=== PATIENT | male | born 1960 | race African-American/Black ===

== ENCOUNTER → 2017-03-05 | Outpatient (CLI) | payer MEDICAID ==
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
== END ==
LOC: RAD 13:39
PROVIDERS: ATTEND Nurse Practitioner Family
DX: S23.0 Traumatic rupture of thoracic intervertebral disc (principal)

== ENCOUNTER → 2017-03-16 | Outpatient (CLI) | payer MEDICAID ==
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
== END ==
LOC: MRI 11:07
PROVIDERS: ATTEND Nurse Practitioner Family
DX: S23.1 Subluxation and dislocation of thoracic vertebra (principal); M54.12 Radiculopathy, cervical region

== ENCOUNTER 2017-03-27 20:57 | Emergency (ER) | payer MEDICAID, OTHER ==
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
[2017-03-27] MEDS ORDERED: ORPHENADRINE CITRATE 30 MG/ML AMP IM ONE (22:40)
[2017-03-27] MEDS ORDERED: HYDROCOD/APAP 7.5/325 (ER DISP) #3 TAB PO ONE (22:41)
[2017-03-27] MEDS ORDERED: KETOROLAC TROMETHAMINE INJ 60 MG/2 ML VIAL IM ONE (22:47)
[2017-03-27 23:09] VITALS: O2SAT 99
[2017-03-27 23:11] VITALS: BP 174/113; TEMP 97.5
== END 2017-03-27 23:11 | disposition home or self-care (01) ==
LOC: ER 20:57
DX: G89.29 Other chronic pain (principal); M54.6 Pain in thoracic spine; M62.830 Muscle spasm of back; I10 Essential (primary) hypertension

== ENCOUNTER 2017-06-03 21:27 | Emergency (ER) | payer MEDICAID, OTHER ==
[2017-06-03 22:28] VITALS: TEMP 97.3; O2SAT 99
--- NOTE | 2017-06-03 23:01 | ED.PDOC ---
History of Present Illness - General Chief Complaint: Skin/Abrasion/Tear Stated Complaint: rash, itching all over Time Seen by Provider: 06/03/17 22:56 Source: patient Exam Limitations: no limitations - History of Present Illness Initial Comments: Jay Herrera 56 y/o male stated that for the last 3 weeks he has itchy skin rash and house that family staying was checked by pest control and found that there was bug in the house then it was sprayed last week but family continue to itch.And also he was using insect spray bought from [employer] but stated con tinue to itch on his torso and extremities. Timing/Duration: other - 3 weeks Severity: moderate Location: torso, extremities Improving Factors: nothing Worsening Factors: nothing Associated Symptoms: jaundice Allergies/Adverse Reactions: Allergies NO KNOWN ALLERGY Allergy (Verified 06/03/17 22:28) Home Medications: Ambulatory Orders Baclofen 10 mg PO BID #20 tab 03/27/17 Htn Med 03/27/17 Muscle Relaxer 03/27/17 Tylenol 4 03/27/17 predniSONE 20 mg PO BID #14 tab 06/03/17 Review of Systems - Review of Systems Constitutional: States: no symptoms reported EENTM: States: no symptoms reported Respiratory: States: no symptoms reported Cardiology: States: no symptoms reported Gastrointestinal/Abdominal: States: no symptoms reported Skin: States: see HPI Past Medical History (General) - Patient Medical History Hx Seizures: No Hx Stroke: No Hx Dementia: No Hx Asthma: No Hx of COPD: No Hx Cardiac Disorders: No Hx Congestive Heart Failure: No Hx Pacemaker: No Hx Hypertension: Yes Hx Thyroid Disease: No Hx Diabetes: No Hx Gastroesophageal Reflux: No Hx Renal Disease: No Hx Cancer: No Hx of HIV: No Hx Hepatitis C: No Hx MRSA: No Surgical History: other - Vaccination History Hx Tetanus, Diphtheria Vaccination: No Hx Influenza Vaccination: No Hx Pneumococcal Vaccination: No - Social History Hx Tobacco Use: No Hx Chewing Tobacco Use: No Hx Alcohol Use: No Hx Substance Use: No Hx Substance Use Treatment: No Hx Depression: No Feels Threatened In Home Enviroment: No Feels Threatened In a Relationship: No Hx Physical Abuse: No Hx Emotional Abuse: No Hx Suspected Abuse: No Family Medical History - Family History Father Family History: Unknown Physical Exam - Physical Exam General Appearance: Alert, No apparent distress Eyes, Ears, Nose, Throat Exam: PERRL/EOMI, pharynx normal Neck: non-tender, supple Cardiovascular/Chest: normal peripheral pulses, regular rate, rhythm, no murmur Respiratory: chest non-tender, lungs clear Gastrointestinal/Abdominal: non tender, soft, no organomegaly Extremity: non-tender, no pedal edema Skin Exam: warm/dry, normal color Skin Problem Location: upper extremities, torso, lower extremities Skin Character: macules Lymphatic: no adenopathy Departure - Departure Clinical Impression: Skin rash Bug bite Qualifiers: Encounter type: initial encounter Qualified Code(s): W57.XXXA - Bitten or stung by nonvenomous insect and other nonvenomous arthropods, initial encounter Time of Disposition: 23:03 Disposition: Discharge to Home or Self Care Condition: Good Departure Forms: ED Discharge - Pt. Copy, Patient Portal Self Enrollment Instructions: Fighting Bugs Naturally, How to Get Rid of Bed Bugs, DI for Bed Bug Bites Referrals: [facility] CIRCULATION LIBRARIAN [Primary Care Provider] - 1-2 Weeks Prescriptions: predniSONE 20 mg PO BID #14 tab Home Medications: Ambulatory Orders Baclofen 10 mg PO BID #20 tab 03/27/17 Htn Med 03/27/17 Muscle Relaxer 03/27/17 Tylenol 4 03/27/17 predniSONE 20 mg PO BID #14 tab 06/03/17 Additional Instructions: NEED TO CALL BACK PEST CONTROL;May take over the counter Benadryl 25 mg 1-2 capsules 3x a day for itching;Follow up with primary md call for appointment
[2017-06-03] MEDS ORDERED: predniSONE 20 MG TAB PO ONE (23:05)
[2017-06-03] MEDS ORDERED: diphenhydrAMINE HCL 25 MG CAP PO ONE (23:05)
[2017-06-03 23:16] VITALS: BP 174/100
== END 2017-06-03 23:16 | disposition home or self-care (01) ==
LOC: ER 21:27
DX: R21 Rash and other nonspecific skin eruption (principal); I10 Essential (primary) hypertension; W57.XXXA Bitten or stung by nonvenomous insect and other nonvenomous arthropods, initial encounter; Y92.009 Unspecified place in unspecified non-institutional (private) residence as the place of occurrence of the external cause
CPT/HCPCS: J7512; Q0163

== ENCOUNTER 2017-06-12 15:39 | Emergency (ER) | payer MEDICAID ==
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
[2017-06-12 16:00] VITALS: TEMP 98.1; O2SAT 98
--- NOTE | 2017-06-12 16:38 | RAD ---
EXAM DESCRIPTION: Chest,1 View CLINICAL HISTORY: neck pain COMPARISON: None. IMPRESSION: Single AP portable upright view of the chest shows cardiac silhouette and pulmonary vasculature to be within normal limits. Lungs are normally aerated and clear. No obvious pleural effusion or pneumothorax is seen. Electronically signed by: Steven Yoon MD 06/12/2017 4:37 PM CDT
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
[2017-06-12] MEDS ORDERED: SODIUM CHLORIDE 0.9% 1000ML 1,000 ML IVS ONE (18:09)
[2017-06-12] MEDS ORDERED: ONDANSETRON INJ 4 MG/2 ML VIAL IV ONE (18:09)
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
[2017-06-12] MEDS ORDERED: PANTOPRAZOLE INJECTION 80 MG in SODIUM CHLORIDE 0.9% 100ML 80 ML IVPB ONE (19:27)
[2017-06-12] MEDS ORDERED: SODIUM CHLORIDE 0.9% 100ML 100 ML IVPB ONE (19:44)
[2017-06-12] MEDS ORDERED: PANTOPRAZOLE SODIUM IV 40 MG VIAL ONE (19:44)
[2017-06-12 21:22] VITALS: BP 120/76
== END 2017-06-12 21:22 | disposition left against medical advice (07) ==
LOC: ER 15:39
DX: M48.02 Spinal stenosis, cervical region (principal); R19.5 Other fecal abnormalities; R20.0 Anesthesia of skin; I10 Essential (primary) hypertension
CPT/HCPCS: 36415; 70450; 71010; 72125; 72128; 72131; 80053; 80307; 81001; 82270; 84484; 85025; 85610; 85730; 93005; J2405; J7030; J7050